=== PATIENT | female | born 1965 | race Asian ===

== ENCOUNTER → 2025-11-03 10:21 | Outpatient (REF) | payer OTHER, SELFPAY | LOC: WDC 10:21 | PROVIDERS: ATTENDING PHYSICIAN Internal Medicine | DX: N63.10 Unspecified lump in the right breast, unspecified quadrant (principal) | CPT/HCPCS: 76642; 77062; 77066 ==

== ENCOUNTER → 2025-11-11 06:18 | Outpatient (REF) | payer OTHER, SELFPAY ==
--- NOTE | 2025-11-11 08:27 | OID.BR.INTR ---
OID Breast Navigator - Initial
- -
Date of Contact: 11/11/25
Met with patient. Will follow up as needed per protocol.
== END ==
LOC: WDC 06:18
PROVIDERS: ATTENDING PHYSICIAN Internal Medicine
DX: N63.12 Unspecified lump in the right breast, upper inner quadrant (principal)
CPT/HCPCS: 19083; 88305; 88341; 88360; A4648